=== PATIENT | female | born 1970 | race African-American/Black ===

== ENCOUNTER → 2017-10-09 10:19 | Outpatient (CLI) | payer OTHER ==
[~2017-10-09 10:19] MED LIST: CLONAZEPAM0.5 MG; RESTORIL7.5 MG; SYNTHROID75 MCG; TIROSINT50 MCG; ULTRAM50 MG PO
== END | disposition home or self-care (01) ==
LOC: LAB 10:19
DX: D69.6 Thrombocytopenia, unspecified (principal); D68.311 Acquired hemophilia

== ENCOUNTER 2018-04-04 12:41 | Outpatient (CLI) | payer OTHER | END 2018-04-04 12:43 | disposition home or self-care (01) | LOC: LAB 12:41 | DX: D64.89 Other specified anemias (principal); I10 Essential (primary) hypertension; E03.8 Other specified hypothyroidism; N60.11 Diffuse cystic mastopathy of right breast; N60.12 Diffuse cystic mastopathy of left breast; C50.411 Malignant neoplasm of upper-outer quadrant of right female breast; D68.311 Acquired hemophilia ==

== ENCOUNTER 2018-06-14 07:19 | Outpatient (CLI) | payer OTHER | END 2018-06-14 07:29 | disposition home or self-care (01) | LOC: NUCLEAR 07:19 | DX: K31.84 Gastroparesis (principal) | CPT/HCPCS: 78264; A9541 ==

== ENCOUNTER 2018-09-09 15:13 | Emergency (ER) | payer OTHER ==
[~2018-09-09] VITALS: Ht 167.6 cm; Wt 74.4 kg
[2018-09-09] MEDS ORDERED: STIMATE150 MCG/0. NS (15:52)
== END 2018-09-09 17:42 | disposition home or self-care (01) ==
LOC: ER 15:13
DX: N93.8 Other specified abnormal uterine and vaginal bleeding (principal)

== ENCOUNTER 2022-11-08 11:19 | Outpatient (CLI) | payer OTHER ==
[~2022-11-08 11:19] MED LIST changes: +STIMATE150 MCG/0. NS
== END 2022-11-08 11:26 | disposition home or self-care (01) ==
LOC: LAB 11:19
PROVIDERS: ATTEND Internal Medicine Hematology & Oncology
DX: D68.8 Other specified coagulation defects (principal)

== ENCOUNTER 2024-04-05 10:00 | Outpatient (CLI) | payer OTHER | END 2024-04-05 10:16 | disposition home or self-care (01) | LOC: RAD 10:00 | PROVIDERS: ATTEND General Practice | DX: M25.561 Pain in right knee (principal); M25.562 Pain in left knee ==

== ENCOUNTER 2024-07-28 12:21 | Emergency (ER) | payer OTHER ==
[~2024-07-28] VITALS: Ht 167.6 cm; Wt 65.8 kg
[2024-07-28] MEDS ORDERED: METOPROLOL SUCC50 MG PO (13:07)
[2024-07-28] MEDS ORDERED: EZETIMIBE10 MG PO (13:08)
[2024-07-28] MEDS ORDERED: VALSARTAN320 MG PO (13:08)
[2024-07-28] MEDS ORDERED: GABAPENTIN100 M2 PO (13:08)
[2024-07-28] MEDS ORDERED: NORVASC2.5 MG PO (13:09)
[2024-07-28] MEDS ORDERED: HYDROCHLOROTH12.5 M2 PO (13:09)
[2024-07-28 13:11] VITALS: BP 105/71; O2SAT 100
[2024-07-28] MEDS ORDERED: KETOROLAC TROMETHAMINE 30 MG VIAL IM STA (13:40)
[2024-07-28] MEDS ORDERED: KETOROLAC TROMETHAMINE 60 MG VIAL IM ONE (13:45)
== END 2024-07-28 15:20 | disposition home or self-care (01) ==
LOC: ER 12:24
DX: R53.81 Other malaise (principal); J06.9 Acute upper respiratory infection, unspecified; Z88.9 Allergy status to unspecified drugs, medicaments and biological substances
CPT/HCPCS: 36415; 96372; 99282; J1885